=== PATIENT | female | born 1945 | race Caucasian/White ===

== ENCOUNTER → 2016-11-28 | Outpatient (CLI) | payer OTHER ==
--- NOTE | 2016-11-28 14:33 | KCIC ---
Examination: Three views of the thoracic spine. HISTORY History of neuropathy, chronic mid thoracic pain. COMPARISON None available. Findings : The vertebral body heights are maintained. The evaluation of the upper thoracic vertebral bodies is limited due to overlapping soft tissue. Moderate intervertebral disc height loss identified throughout the thoracic spine. IMPRESSION Moderate degenerative changes thoracic spine. Electronically signed by: Mac Pittman (Nov 28, 2016 14:32:00)
--- NOTE | 2016-11-28 17:19 | KCIC ---
Examination: DEXA scan. HISTORY History of postmenopausal, steroid use COMPARISON None available. Findings: The bone mineral density in the lumbar spine is 1.302 grams per centimeters square with a T-score of 2.6 and Z-score of 4.6. The bony density in the left femoral neck region is 0.807 grams per centimeters square with a T-score of -1.1 and Z-score of 0.4 IMPRESSION Bone mineral density is osteopenia in the left femoral neck region. Electronically signed by: Mca Pittman (Nov 28, 2016 17:18:30)
== END | disposition home or self-care (01) ==
LOC: KCIC DEXA 12:33
PROVIDERS: ATTEND Family Medicine
DX: Z78.0 Asymptomatic menopausal state (principal); G62.9 Polyneuropathy, unspecified; M54.6 Pain in thoracic spine; M47.814 Spondylosis without myelopathy or radiculopathy, thoracic region; Z79.52 Long term (current) use of systemic steroids
CPT/HCPCS: 72072; 77080

== ENCOUNTER → 2018-07-25 | Outpatient (CLI) | payer OTHER ==
--- NOTE | 2018-07-25 16:04 | RAD ---
DATE: 07/25/2016 EXAM: MAMMO MARGIE SCREENING BILATERAL HISTORY: Routine screening COMPARISON: 07/13/2016 and 07/14/2017 screen mammographic exams This study was interpreted with the benefit of Computerized Aided Detection (CAD). Breast Density: SCATTERED The breast parenchyma shows scattered fibroglandular densities. Breast parenchyma level B. FINDINGS: Benign calcifications are present. No suspicious calcification clusters, masses, or distortion. IMPRESSION: Normal BI-RADS CATEGORY: 2 BENIGN FINDING(S) RECOMMENDED FOLLOW-UP: 12M 12 MONTH FOLLOW-UP PQRS compliance statement: Patient information was entered into a reminder system with a target due date in 1 year for the next mammogram. Mammography is a sensitive method for finding small breast cancers, but it does not detect them all and is not a substitute for careful clinical examination. A negative mammogram does not negate a clinically suspicious finding and should not result in delay in biopsying a clinically suspicious abnormality. "Our facility is accredited by the [employer] Mammography Program."
== END | disposition home or self-care (01) ==
LOC: MAMMO 14:03
PROVIDERS: ATTEND Family Medicine
DX: Z12.31 Encounter for screening mammogram for malignant neoplasm of breast (principal)
CPT/HCPCS: 77063; 77067

== ENCOUNTER → 2019-02-01 | Outpatient (CLI) | payer OTHER ==
--- NOTE | 2019-02-01 11:16 | RAD ---
Chest, 2 views, 02/01/2019: HISTORY: Cough, right-sided chest pain The heart size and pulmonary vascularity are normal. No pulmonary infiltrate is seen. There is no evidence of pleural fluid. Mild scattered spurs are present in the spine. IMPRESSION: No acute cardiopulmonary abnormality is detected Electronically signed by: Lazaro Cardenas MD (02/01/2019 11:13 AM) [facility]
== END | disposition home or self-care (01) ==
LOC: RAD 10:48
PROVIDERS: ATTEND Internal Medicine Pulmonary Disease
DX: R05 Cough (principal); R07.9 Chest pain, unspecified; M46.00 Spinal enthesopathy, site unspecified
CPT/HCPCS: 71046

== ENCOUNTER → 2019-03-22 | Outpatient (CLI) | payer OTHER ==
--- NOTE | 2019-03-22 10:43 | CARD ---
MR#: [id number] Date of Study: 03/22/2019 Ordering Physician: VANESSA MCNAIR, Referring Physician: VANESSA MCNAIR, Tech: Kiara Jackman [facility] APPROVED REPORT EXAM: Two-dimensional and M-mode echocardiogram with Doppler and color Doppler. Other Information Quality : AverageHR: 78bpm Rhythm : NSRTechnically limited study due to body habitus. INDICATION Dyspnea 2D DIMENSIONS RVDd3.1 (2.9-3.5cm)Left Atrium(2D)3.0 (1.6-4.0cm) IVSd1.1 (0.7-1.1cm)Aortic Root(2D)2.7 (2.0-3.7cm) LVDd3.6 (3.9-5.9cm)LVOT Diameter1.8 (1.8-2.4cm) PWd0.9 (0.7-1.1cm)LVDs2.2 (2.5-4.0cm) FS (%) 38.5 %SV38.5 ml LVEF(%)69.7 (>50%) Aortic Valve AoV Peak Marlon.125.0cm/sAoV VTI26.3cm AO Peak GR.6.3mmHgLVOT Peak Marlon.85.6cm/s AO Mean GR.3mmHgAVA (VMAX)1.68cm2 ERIN (VTI)1.80cm2 Mitral Valve MV E Ghepqsxb22.0cm/sMV DECEL HIBD718ca MV A Gzeluapg26.0cm/sE/A Ratio0.7 Pulmonary Valve PV Peak Cujeddff01.0cm/s LEFT VENTRICLE The left ventricle is normal size. Proximal septal thickening is noted. The left ventricular systolic function is normal. The Ejection Fraction is 65-70%. There is normal LV segmental wall motion. Trans mitral Doppler flow pattern is Grade I-abnormal relaxation pattern. RIGHT VENTRICLE The right ventricle is normal size. There is normal right ventricular wall thickness. The right ventr icular systolic function is normal. ATRIA The left atrium size is normal. The right atrium size is normal. The interatrial septum is intact wit h no evidence for an atrial septal defect or patent foramen ovale as noted on 2-D or Doppler imaging. AORTIC VALVE The aortic valve is normal in structure and function. The aortic valve is trileaflet. Doppler and Col or Flow revealed no significant aortic regurgitation. There is no significant aortic valvular stenosi s. There is no aortic valvular vegetation. MITRAL VALVE The mitral valve is normal in structure and function. There is no evidence of mitral valve prolapse. There is no mitral valve stenosis. Doppler and Color Flow revealed no mitral valve regurgitation note d. TRICUSPID VALVE The tricuspid valve is normal in structure and function. Doppler and Color Flow revealed no tricuspid valve regurgitation noted. There is no tricuspid valve prolapse or vegetation. There is no tricuspid valve stenosis. PULMONIC VALVE The pulmonic valve is not well visualized. GREAT VESSELS The aortic root is normal in size. The ascending aorta is normal in size. The IVC is normal in size a nd collapses >50% with inspiration. PERICARDIAL EFFUSION There is no evidence of significant pericardial effusion. Critical Notification Critical Value: No <Conclusion> The left ventricular systolic function is normal. The Ejection Fraction is 65-70%. There is normal LV segmental wall motion. Transmitral Doppler flow pattern is Grade I-abnormal relaxation pattern. There is no evidence of significant pericardial effusion. Signed by : Ruddy Schulz, Electronically Approved : 03/22/2019 10:42:26
--- NOTE | 2019-03-22 12:27 | RAD ---
MR#: [id number] Date of Study: 03/22/2019 Ordering Physician: VANESSA MCNAIR Referring Physician: MABEL CHAN Tech: APPROVED REPORT Test Type: Exercise Stress Nurse/Tech: Pam Huber RN Test Indications: dyspnea Cardiac History: asthma Medications: see ehr Medical History: see ehr Resting ECG: sr Resting Heart Rate: 69 bpm Resting Blood Pressure: 142/85mmHg Pretest Chest Pain: No chest pain Nurse/Tech Notes lungs cta Consent: The procedure was explained to the patient in lay terms. Informed consent was witnessed. Héctor evelyn was entered into [employer]. History and Stress Test performed by UBALDO Saunders Stress Symptoms No chest pain or symptoms. POST EXERCISE Reason for Termination: Reached target heart rate Target HR: Yes Max HR: 127 bpm 86% of Maximum Predicted HR: 148 bpm Exercise duration: 6:37 min:sec, 3 Stage Exercise capacity: 10.0METs Max Blood Pressure: 182/77mmHg Blood Pressure response to exercise: Normal blood pressure response during stress. Chest Pain: No. Arrhythmia: Yes. unifocal PVCs noted ST Change: Yes. ST depression noted in II III avf, V4-6 throughout recovery, mostly resolved except L ead II INTERPRETATION Stress EKG Conclusion: Baseline EKG showed sinus rhythm. Upsloping ST depressions in the inferolatera l leads at peak stress suspicious but not diagnostic for ischemia. Few PVCs without any significant a rrhythmias were seen. Conclusion 1. Exercise stress electrocardiogram showed changes at peak stress suggestive but not diagnostic for ischemia. Recommend imaging study for definitive evaluation. Signed by : Ruddy Schulz, Electronically Approved : 03/22/2019 12:27:01
== END | disposition home or self-care (01) ==
LOC: NM 09:53
PROVIDERS: ATTEND Internal Medicine Pulmonary Disease
DX: R06.00 Dyspnea, unspecified (principal); J45.909 Unspecified asthma, uncomplicated
CPT/HCPCS: 93017; 93306

== ENCOUNTER → 2019-06-06 | Outpatient (CLI) | payer OTHER ==
[~2019-06-06] VITALS: Ht 175.3 cm; Wt 77.6 kg
[~2019-06-06] MED LIST: ALBU2.5V8 INH; FLUT100D IH; GABA-689 PO; LOVA20TA2 PO; NAPR-514 PO; RANI150C PO
--- NOTE | 2019-06-07 13:54 | RAD ---
MR#: [id number] Date of Study: 06/06/2019 Ordering Physician: YOLA WILDER, Referring Physician: MABEL CARRERA Tech: UBALDO Saunders APPROVED REPORT Test Type: Exercise Stress Nurse/Tech: Anastasia Cervantes RN Test Indications: chest pressure, cough Cardiac History: asthma Medications: See Electronic Medical Record Medical History: See Electronic Medical Record Resting ECG: SR Resting Heart Rate: 63 bpm Resting Blood Pressure: 173/85mmHg Pretest Chest Pain: None Nurse/Tech Notes S1S2, lungs CTA Consent: The procedure was explained to the patient in lay terms. Informed consent was witnessed. Héctor eout was entered into [employer]. History and Stress Test performed by Anastasia Cervantes RN Stress Symptoms Dyspnea POST EXERCISE Reason for Termination: Reached target heart rate Target HR: 125 Max HR: 135 bpm Max Blood Pressure: 184/69mmHg Blood Pressure response to exercise: Normal blood pressure response during stress. Heart Rate response to exercise: normal response Chest Pain: No. Arrhythmia: No. ST Change: No. INTERPRETATION Stress EKG Conclusion: Baseline EKG showed sinus rhythm. No ischemic changes at peak stress. No arr hythmias. Imaging Protocol IMAGE PROTOCOL: Rest Tc-99m/stress Tc-99m 1 day Rest: Stress: Viability: Radiopharm.Tc99m MifmikfdlOr76j Sestamibi [id number] 32mCi Duration 15min. 13min. Img Date 06/06/2019 06/06/2019 Inj-Img Qgzv45nqu. 60min. Post-Injection Exercise: 1 minute Rest Admin Site:IV - Right AntecubitalAdministrator:Bernice Bhandari, RT (R)(N) Stress Admin Site: IV - Right AntecubitalAdministrator: THEE Redding, ARRT (R)(N) STRESS DATA End Diast. Vol.55.0mlLVEDV index BSA29.0ml End Syst. Vol.7.0mlLVESV index BSA4.0ml Myocardial Ywne696.0gEject. Bbaoxhhw85.0% Stress Scores Regional WT0.00Summed WT7.00 Regional WM0.00Summed WM1.00 Study quality was good. Left Ventricular size was Normal at Rest and Stress. Lung uptake was . Left Ventricular ejection fraction is 87%. The rest and stress images show normal perfusion, normal contraction and thickening. LV Perf. Quant 17 Seg. SSS0.00 17 Seg. SRS0.00 17 Seg. SDS0.00 Stress Defect Extent (% LAD)0.00Rest Defect Extent (% LAD)0.00Rev. Defect Extent (% LAD)0.00 Stress Defect Extent (% LCX) 0.00Rest Defect Extent (% LCX)0.00Rev. Defect Extent (% LCX)0.00 Stress Defect Extent (% RCA)0.00Rest Defect Extent (% RCA)0.00Rev. Defect Extent (% RCA)0.00 Stress Defect Extent (% BERTO)0.00Rest Defect Extent (% BERTO)0.00Rev. Defect Extent (% BERTO)0.00 Conclusion 1. Treadmill exercise cardioisotope stress test did not show any evidence of ischemia or infarct. 2. Normal left ventricular systolic function with ejection fraction calculated at 87%. 3. Low risk for cardiac events. Signed by : Ruddy Schulz, Electronically Approved : 06/06/2019 12:47:47
== END | disposition home or self-care (01) ==
LOC: NM 08:18
PROVIDERS: ATTEND Internal Medicine Cardiovascular Disease
DX: R07.89 Other chest pain (principal); J45.909 Unspecified asthma, uncomplicated; Z88.8 Allergy status to other drugs, medicaments and biological substances; Z88.5 Allergy status to narcotic agent
CPT/HCPCS: 78452; 93017; A9500

== ENCOUNTER → 2019-08-12 | Outpatient (CLI) | payer OTHER ==
--- NOTE | 2019-08-14 11:50 | RAD ---
DATE: August 12, 2019 EXAM: MAMMO MARGIE SCREENING BILATERAL HISTORY: Screening study. COMPARISON: 2016 and 2018 This study was interpreted with the benefit of Computerized Aided Detection (CAD). 2-D digital mammographic views of both breasts were performed in the CC and MLO projections. 3-D digital tomosynthesis images of both breasts were performed in the CC and MLO projections and reviewed on a computer workstation. FINDINGS: Breast Density: FATTY The breast parenchyma is primarily fatty replaced. Breast parenchyma level density A.. There are no dominant suspicious masses, suspicious microcalcifications or evidence of architectural distortion. Bilateral breast nodularity is unchanged. IMPRESSION: No mammographic indicators for malignancy. BI-RADS CATEGORY: 2 BENIGN FINDING RECOMMENDED FOLLOW-UP: 12M 12 MONTH FOLLOW-UP PQRS compliance statement: Patient information was entered into a reminder system with a target due date August 13, 2020 for the next mammogram. Mammography is a sensitive method for finding small breast cancers, but it does not detect them all and is not a substitute for careful clinical examination. A negative mammogram does not negate a clinically suspicious finding and should not result in delay in biopsying a clinically suspicious abnormality. "Our facility is accredited by the [employer] Mammography Program." The patient's breast density may affect the ability of mammography to detect breast cancer. There are 4 categories of breast density, A, B, C and D. Breast density A means that most of the breast tissue is replaced with adipose tissue and therefore is not dense. Breast density B means that the breast tissue is mildly dense and scattered. Breast density C means that the breast tissue is heterogeneously dense. Breast density D means that the breast tissue is very dense. Breast densities especially C and D may decrease the sensitivity of mammography to detect breast cancer. Therefore, the patient may benefit from 3-D breast mammography (3D breast tomography) as a part of their screening mammogram. Insurance may or may not pay for this additional imaging. The patient's breast density based on today's mammogram is category A.
== END | disposition home or self-care (01) ==
LOC: MAMMO 15:30
PROVIDERS: ATTEND Family Medicine
DX: Z12.31 Encounter for screening mammogram for malignant neoplasm of breast (principal)
CPT/HCPCS: 77063; 77067

== ENCOUNTER → 2020-06-26 | Outpatient (CLI) | payer MEDICARE, OTHER ==
--- NOTE | 2020-06-26 15:38 | RAD ---
MRI Thoracic Spine without contrast History:Back pain Technique: Multiplanar, multi sequential noncontrast MR imaging was performed of the thoracic spine. Comparison: None Findings: Thoracic vertebral body stature is overall maintained. There is large 1.6 cm focus of somewhat heterogeneous signal abnormality of the T2 vertebral body, degree of associated T2 and STIR hyperintense signal and somewhat heterogeneous on T1 sequence and likely degree of associated trabecular thickening. There is also focus of T1 hypointense signal of the T6 vertebral body on the left extending to the inferior endplate about 0.8 cm in size, centrally hyperintense on STIR sequence. There is multilevel advanced degenerative disc disease greatest at T7-8 through T10-11, to a lesser degree of more superior levels. Thoracic cord caliber is within normal limits without defined or expansile signal abnormality, limited evaluation for subtle signal change due to motion. AP alignment is overall maintained. Levels with abnormalities include: T1-2: There is shallow bulge/protrusion without significant spinal stenosis. T2-3: There is shallow bulge/protrusion without significant spinal stenosis. T5-T6: There is a very shallow posterior bulge/protrusion without spinal stenosis. T6-7: There is very shallow posterior protrusion without spinal stenosis. T7-8: There is very minimal disc osteophyte complex without spinal stenosis. There is minimal buckling of the ligamentum flavum. T8-9: There is very minimal disc osteophyte complex and bulge. There is mild prominence of posterior epidural fat. There is very mild attenuation of the thecal sac. Facet degenerative change contributes to minimal narrowing of the right neural foramen. T9-10: There is mild buckling of the ligamentum flavum. There is prominence of posterior epidural fat centrally. There is minimal bulge. There is minimal narrowing of the far lateral recesses bilaterally. Facet degenerative change contributes to nxmj-bu-nftxpudk narrowing of the left neural foramen, mild narrowing on the right. T10-11: There is very minimal disc osteophyte complex and bulge. There is mild prominence of posterior epidural fat centrally. There is mild buckling of the ligamentum flavum. There is minimal narrowing of the left lateral recess from posteriorly. There is very mild narrowing of the left neural foramen. As seen on the localizer, there is multilevel cervical degenerative disc disease greatest C4-5 to C6-7. There is grade 1 anterior spondylolisthesis C4-5. There is likely central canal stenosis C4-5 estimated about 9 mm. Impression: 1. There is multilevel thoracic degenerative disc disease and mild spondylosis. No significant thoracic spinal stenosis is identified, mild attenuation of the thecal sac. 2. There are foci of marrow signal abnormality of the T2 and T6 vertebral bodies. T2 lesion is more likely a hemangioma as there appears to be some trabecular thickening. Focus of T6 is considered indeterminant, difficult to exclude more aggressive marrow replacing lesion on this exam. Bone scan could be beneficial to assess for abnormal radiotracer activity and to assess for other lesions. Alternatively, follow-up to assess stability such as in 3-6 months could be beneficial. 3. There is multilevel cervical degenerative disc disease. There is grade 1 anterior spondylolisthesis at C4-5 with there is likely mild spinal stenosis. Electronically signed by: Danny Pyle MD (06/26/2020 3:35 PM) [facility]ENTERDavida
== END ==
LOC: MRI 14:45
PROVIDERS: ATTEND Nurse Practitioner Family
DX: M51.34 Other intervertebral disc degeneration, thoracic region (principal); M47.812 Spondylosis without myelopathy or radiculopathy, cervical region; M50.30 Other cervical disc degeneration, unspecified cervical region; M48.02 Spinal stenosis, cervical region; M43.12 Spondylolisthesis, cervical region
CPT/HCPCS: 72146

== ENCOUNTER → 2021-02-16 | Outpatient (CLI) | payer MEDICARE ==
[~2021-02-16] MED LIST changes: -FLUT100D IH; +FLUT100D2 IH
--- NOTE | 2021-02-16 13:33 | KCIC ---
EXAM: Lumbar spine MRI without contrast. HISTORY: Radiculopathy. TECHNIQUE: Multiplanar, multisequence magnetic resonance imaging of the lumbar spine was performed wi thout contrast. COMPARISON: Thoracic MRI dated 06/26/2020. FINDINGS: There are right transpedicular screws bridged by vertical rods and there is a disc space fu john device at L4-L5. There is grade 1 anterolisthesis this level, measuring 5 mm. There is slight re trolisthesis of L2 on L3. There is lumbar scoliosis. There is multilevel endplate remodeling with disc space narrowing, osteophytosis and Schmorl's node f ormation. There is relative preservation of the disc space at L1-L2. There is no suspicious osseous l esion. There is no fracture. The conus terminates at L1. There are right renal parapelvic cysts. Foll ow-up is not routinely performed for simple cysts. At T9-T10, there is a disc bulge and endplate remodeling. There is moderate left facet arthropathy. T here is suspected mild bilateral foraminal and central canal stenosis. At T10-T11, there is a disc bulge and endplate remodeling. There is mild bilateral facet arthropathy. There is suspected mild right foraminal and central canal stenosis. At T11-T12, there is a minimal left lateral recess disc protrusion superimposed on a disc bulge. Ther e is mild right facet arthropathy. There is no stenosis. At T12-L1, there is no stenosis. At L1-L2, there is a minimal disc bulge. There is no stenosis. At L2-L3, there is a right lateral recess to extra foraminal disc protrusion superimposed on a right lateral predominant disc bulge and endplate osteophytosis. There is moderate right and mild left face t arthropathy. There is hypertrophy of the ligamentum flavum. There is moderate to severe right alex inal stenosis with abutment the exiting right L2 nerve root. There is moderate central canal stenosis . At L3-L4, there is a diffuse disc bulge and endplate osteophytosis. There is severe bilateral facet a rthropathy. There is hypertrophy of the ligamentum flavum. There is moderate right and moderate to se erin left foraminal stenosis with abutment the exiting L3 nerve roots. There is severe central canal stenosis. At L4-L5, there is instrumented fusion. There is a disc bulge and endplate remodeling. There is parti al laminectomy decompression. There is mild central canal stenosis. At L5-S1, there is a left paracentral to lateral recess disc protrusion and annular tear superimposed on a disc bulge and endplate osteophytosis. There is mild right facet arthropathy. There is mild rig ht foraminal stenosis with abutment the exiting right L5 nerve root. There is narrowing of the left l ateral recess and abutment the traversing left S1 nerve root. IMPRESSION: 1. Multiple degenerative change involving the lower thoracic and lumbar spine, described in detail ab ove. This results in stenosis at the aforementioned levels. The central canal stenosis most severe at L3-L4. 2. Instrumented right posterior spinal fusion and disc space device placement at L4-L5. 3. Lumbar scoliosis and multilevel listhesis. Electronically signed by: Bernice Sena MD (02/16/2021 1:31 PM) [id number]
== END ==
LOC: KCIC MRI 12:29
PROVIDERS: ATTEND Neurological Surgery
DX: M47.25 Other spondylosis with radiculopathy, thoracolumbar region (principal); M41.86 Other forms of scoliosis, lumbar region; M43.16 Spondylolisthesis, lumbar region
CPT/HCPCS: 72148

== ENCOUNTER → 2021-04-19 | Outpatient (CLI) | payer MEDICARE ==
[~2021-04-19] MED LIST changes: +GADOTERATE 7.5 MMOL/15ML VIAL. IVP ONE; +IBUP-1060 PO; +LOSA-73 PO; +MELA10TA7 PO; +OMEP20CA16 PO
--- NOTE | 2021-04-19 14:21 | KCIC ---
MRI THORACIC SPINE WITHOUT AND WITH IV CONTRAST History:Reason: THORACIC RADICULOPATHY / Spl. Instructions: / History: Abnormal prior Tspine imaging . 12cc Clariscan. Technique: Multiplanar, multi sequential MR imaging was performed of the thoracic spine was performed without and with intravenous contrast. Comparison: Lumbar spine February 16, 2021. Thoracic spine June 26, 2020 Findings: STIR hyperintense signal abnormality lesion within T6 vertebral body with enhancement is similar comp ared to prior allowing for differences in technique. T2 vertebral body lesion is also similar compare d to prior. No new lesions. Normal vertebral body height and alignment. No acute fracture. No pathologic signal abnormality within the thoracic spinal cord. Moderate multilevel degenerative disc changes with disc protrusions most prominent T6-T7, T7-T8, T8-T 9, T9-T10 and T10-T11. Mild cord flattening T7-T8, T8-T9 and T9-T10. Minimal canal narrowing T8-T9, T 9-T10 and T10-T11. Multilevel facet arthropathy. Mild to moderate neuroforaminal narrowing T7-T8, T8- T9 and T9-T10. Impression: 1. Enhancing T6 vertebral body lesion, similar compared to prior allowing for differences in techniq ue. Finding may represent atypical hemangioma in the absence of concern for malignancy. If persistent concern for malignancy, recommend continued follow-up and bone scan can further evaluate. 2. Unchanged T2 vertebral body lesion, may represent hemangioma. 3. Moderate multilevel thoracic spondylosis, similar compared to prior. Electronically signed by: Mundo Riggins DO (04/19/2021 2:18 PM) [id number]
== END ==
LOC: KCIC MRI 09:57
PROVIDERS: ATTEND Neurological Surgery
DX: M47.24 Other spondylosis with radiculopathy, thoracic region (principal); M51.14 Intervertebral disc disorders with radiculopathy, thoracic region; M48.04 Spinal stenosis, thoracic region
CPT/HCPCS: 72157; 82565; A9575

== ENCOUNTER → 2021-05-20 | Outpatient (CLI) | payer MEDICARE ==
[~2021-05-20] MED LIST changes: +CYAN100T21 PO; -GADOTERATE 7.5 MMOL/15ML VIAL. IVP ONE; +IOHEXOL 180 MG/ML 10 ML VIAL. ONE; +LANS30CA66 PO; +methylPREDNISolone ACETATE 80 MG/ML VIAL. ONE
--- NOTE | 2021-05-20 13:03 | PDOC4 ---
Procedure Note: ICD 10 Code: ICD 10 Code: M54.16 M 48.06 M51.36 Procedure Note: Patient was consented for lumbar epidural steroid injection with fluoroscopic guidance. Risks were discussed including but not limited to: Bleeding, infection, possibility of epidural hematoma and subsequent neurological compromise, dural puncture, headaches, spinal cord and/or nerve damage, side effects of steroid medication, and poor results regarding pain control. Patient understands and wished to proceed. Procedure is lumbar epidural steroid injection under local anesthetic using сергей rile prep and drape at the L3-4 level using C-arm fluoroscopic guidance in both AP and lateral views medications injected is 120 mg Depo-Medrol +10mL preservative-free normal saline and 2 mL contrast- condition at discharge is stable patient tolerated procedure well had no complications. KANE RODRIGUEZ MD May 20, 2021 13:03
--- NOTE | 2021-05-20 13:03 | PDOC1 ---
INITIAL PAIN CONSULT DATE OF SERVICE: DOS: DATE: 05/20/21 TIME: 12:57 CHIEF COMPLAINT: Chief Complaint: Low back and right lower extremity pain HISTORY OF PRESENT ILLNESS: 76-year-old female presents history of pain low back right lower extremity for many years worse over the past year or so status post lumbar fusion on the right at L4-5 with good results initially with pain returning now in the low back and the right lower extremity posterior gluteus posterior lateral thigh lateral anterior thigh anteromedial thigh medial groin and into the medial knee on the right side as well patient reports constant throbbing radiating changes during the day worse with walking standing worse with changing positions worsen getting up from a seated position awakens her from sleep least once or twice a night reports he does not effective bowel bladder control but does affect her ability to walk she does not use any assistive devices however patient has had physical therapy as well as chiropractic treatment is currently doing exercise all of which help but only to a moderate extent. Patient has a MRI scan of the lumbar spine showing multiple degenerative changes instrumented right posterior spinal fusion nondisplaced device placement L4-5 with L3-4 disc bulge with severe bilateral arthropathy hypertrophy of ligamentum flavum with moderate right and moderate to severe left foraminal stenosis with abutment of the exiting L3 nerve roots with severe central canal stenosis. L5-S1 shows mild right foraminal stenosis with abutment of the exiting right L5 nerve root with narrowing left lateral recess and abutment of the traversing left S1 nerve root. Patient rates her disability of 0-10 10 being the worst is a 7 with family home responsibilities and recreation 6 with social activity self-care and life support activities. Patient has been taking gabapentin as well as [id number] Motrin which does decrease the pain but only to a moderate extent. Patient reports no loss of motor function no bowel or bladder incontinence. PAST MEDICAL HISTORY: PMH: Hypertension, arthritis, cataracts PREVIOUS SURGERIES: Past Surgical Hx: Tonsillectomy, hysterectomy, carpal tunnel repair, cubital tunnel release, cholecystectomy, lumbar fusion, breast reduction, cataract extractions CURRENT MEDICATIONS: Current Meds: Active Scripts Medications Dose Route/Sig Max Daily Dose Days Date Category Prevacid (Lansoprazole) 30 Mg Capsule. 1 Cap PO DAILY 30 05/20/21 Reported Vitamin B-12 (Cyanocobalamin (Vitamin B-12)) 100 Mcg Tablet 100 Mcg PO DAILY 05/20/21 Reported Melatonin 10 Mg Tab.rapdis 10 Mg PO 04/19/21 Reported Omeprazole 20 Mg Capsule.dr 20 Mg PO DAILY 04/19/21 Reported Ibuprofen 800 Mg Tablet 800 Mg PO PRN Q6HRS PRN 04/19/21 Reported Losartan Potassium 50 Mg Tablet 50 Mg PO DAILY 04/19/21 Reported Lovastatin 20 Mg Tablet 1 Tab PO DAILY 06/06/19 Reported Gabapentin (Gabapentin) 400 Mg Capsule 400 Mg PO TID 06/06/19 Reported Naproxen 500 Mg Tablet 1 Tab PO BID 06/06/19 Reported ALLERGIES; Allergies: Coded Allergies: bacitracin (Verified Allergy, Intermediate, rash, 06/06/19) codeine (Verified Allergy, Intermediate, N/V rash, 06/06/19) polymyxin B (Verified Allergy, Intermediate, rash, 06/06/19) FAMILY HISTORY: Family Hx: Heart disease SOCIAL HISTORY: Social Hx: Patient is alcohol 1 to 2 glasses of wine a month on average, does not smoke does not use any illegal illicit or recreational drugs is lives locally in [facility] and is currently retired. REVIEW OF SYSTEMS: ROS: Positive for those items mentioned in history of present illness, all systems are reviewed, otherwise negative ,and are complete full and well-documented on patient's chart. PHYSICAL EXAM: VS: Blood pressure is 165/88 pulse 71 respirations 18 temperature is 90.7 F height is 5 foot weight is 166 pounds PE: PHYSICAL EXAMINATION: GENERAL: The patient is awake, alert, oriented, appropriate, very pleasant in demeanor. HEENT: Shows normocephalic, atraumatic. Extraocular movements are intact and symmetrical. Oral cavity: Mucous membranes moist and pink. NECK: Shows anterior throat supple without palpable lymphadenopathy noted. Swallow reflex symmetrical. CHEST: Shows normal on inspection. Breath sounds are clear bilaterally, distant no rales rhonchi or wheezes auscultated. HEART: Shows S1, S2 clear. No murmurs auscultated. ABDOMEN: Soft, nontender, nondistended, obese. No palpable organomegaly is noted. No rebound or guarding demonstrated. BACK: Shows spine grossly in the midline. Normal-appearing cervical lordotic curvature. There is slightly increased thoracic kyphosis, some minor flattening of the lumbar lordotic curvature. Lumbar paraspinous muscles show symmetrical on inspection, on palpation shows some moderate tenderness diffusely throughout the upper, middle and lower distribution of the paraspinous muscles bilaterally and also into the lower thoracic paraspinous musculature, firm and tender, but without specific trigger points, without radiation of pain. The patient has good rotational motion of the lumbar spine, both laterally as well as extension and flexion without significant difficulty. No tenderness over the spinous processes, sacrum or sacroiliac regions. EXTREMITIES: Lower extremities show deep tendon reflexes 1 in the patellar and tendo calcaneus tendons. Motor exam is 4 on a scale of 5 with right dorsiflexion, extension, quadriceps and hamstring flexion and 5/5 on the left. Peripheral pulses are 1 posterior tibial. No peripheral edema is noted b ilaterally. Lower extremities are warm and dry to touch, equal in color and appearance. Straight leg raise noted to be positive on the right about 40 degrees, left side is negative. Gaenslen's and Kenan's maneuvers are negative bilateral as well. The patient is able to stand, stand on her toes without significant difficulty or loss of balance but does walk with a slight favoring gait appears to favor the right lower extremity again not use any assistive devices to ambulate. SKIN: Shows warm and dry, good turgor. No edema. No sores, rashes or bruising throughout. IMPRESSION: Impression: 76-year-old female with long history low back right lower extremity pain or radicular fashion. MRI scan lumbar spine as noted Hypertension Arthritis Plan: Options were discussed with the patient "conservative management physical therapies interventional techniques. Patient like to pursue interventional techniques. We discussed a lumbar epidural steroid injections descriptions as well as anatomical models to describe the procedure. Patient would like to proceed. Patient will return to the clinic in approximately 2 weeks for follow- up, was counseled as return appointment, activity level, and side effects to be aware of. Procedure is lumbar epidural steroid injection under local anesthetic using sterile prep and drape at the L3-4 level using C-arm fluoroscopic guidance in both AP and lateral views medications injected is 120 mg Depo-Medrol +10mL preservative-free normal saline and 2 mL contrast- condition at discharge is stable patient tolerated procedure well had no complications. KANE RODRIGUEZ MD May 20, 2021 13:03
== END | disposition home or self-care (01) ==
LOC: PNCL 10:03
PROVIDERS: ATTEND Anesthesiology
DX: M54.5 Low back pain (principal); I10 Essential (primary) hypertension; M19.90 Unspecified osteoarthritis, unspecified site; M51.16 Intervertebral disc disorders with radiculopathy, lumbar region; M48.061 Spinal stenosis, lumbar region without neurogenic claudication; Z88.5 Allergy status to narcotic agent; Z88.8 Allergy status to other drugs, medicaments and biological substances; Z79.899 Other long term (current) drug therapy; Z98.890 Other specified postprocedural states; Z82.49 Family history of ischemic heart disease and other diseases of the circulatory system
CPT/HCPCS: 62323; 99205; J1040; Q9965; G0463

== ENCOUNTER → 2021-08-19 | Outpatient (CLI) | payer MEDICARE ==
[~2021-08-19] MED LIST changes: -IOHEXOL 180 MG/ML 10 ML VIAL. ONE; -methylPREDNISolone ACETATE 80 MG/ML VIAL. ONE
--- NOTE | 2021-08-19 12:23 | RAD ---
BILATERAL DIGITAL SCREENING 2-D AND 3-D MAMMOGRAM INDICATION: Routine screening. History of breast reduction. COMPARISON: August 12, 2019, July 14, 2017, July 25, 2018 and July 07, 2020 Interpretation was made using CAD. FINDINGS: Breast Density: There are scattered areas of fibroglandular density. RIGHT BREAST: Stable masses are seen in the lower outer quadrant. There is also a stable masses in he r breast. No suspicious masses, calcifications or areas of distortion are seen. LEFT BREAST: No suspicious masses, calcifications or areas of architectural distortion are seen. IMPRESSION: 1. No imaging evidence of malignancy. ASSESSMENT: BI-RADS 2. Benign Findings RECOMMENDATION: Routine annual screening mammogram. The facility will notify the patient of the results via mail. Patient information will be entered int o the mammography reminder system with a target recall date for the next mammogram. A reminder letter will be generated by the facility. Electronically signed by: Mary Cannon MD (08/19/2021 12:20 PM) [id number]
== END ==
LOC: MAMMO 07:52
PROVIDERS: ATTEND Nurse Practitioner Family
DX: Z12.31 Encounter for screening mammogram for malignant neoplasm of breast (principal)
CPT/HCPCS: 77063; 77067

== ENCOUNTER → 2021-09-08 | Outpatient (CLI) | payer MEDICARE ==
--- NOTE | 2021-09-08 09:59 | KCIC ---
EXAM: Right shoulder, 3 views. HISTORY: Pain. COMPARISON: None. FINDINGS: 3 views of the right shoulder obtained. There is no acute fracture, dislocation or subluxat ion. There is mild glenohumeral joint spurring. There is right infrahilar atelectasis or scarring. IMPRESSION: Mild glenohumeral joint osteoarthritis. Electronically signed by: Bernice Sena MD (09/08/2021 9:56 AM) [id number]
== END ==
LOC: KCIC 09:27
PROVIDERS: ATTEND Nurse Practitioner Family
DX: M19.011 Primary osteoarthritis, right shoulder (principal)
CPT/HCPCS: 73030

== ENCOUNTER → 2021-10-21 | Outpatient (CLI) | payer MEDICARE ==
[~2021-10-21] MED LIST changes: +GADOTERATE 7.5 MMOL/15ML VIAL. IVP ONE
--- NOTE | 2021-10-21 16:06 | KCIC ---
EXAM: Thoracic spine MRI without and with contrast. HISTORY: Radiculopathy. T6 lesion. TECHNIQUE: Multiplanar, multisequence magnetic resonance imaging of the thoracic spine was performed without and with contrast. COMPARISON: 04/19/2021 and 06/26/2020 FINDINGS: The incendiaries supervisor images of the cervical spine demonstrate multilevel degenerative listhesis, endpl ate remodeling, osteophytosis and facet arthropathy. This is not formally assessed on this exam. Gini larly, the incendiaries supervisor images of the lumbar spine demonstrate multilevel listhesis, degenerative endplate r emodeling, osteophytosis and facet arthropathy contributing to foraminal stenosis at multiple levels. There is instrumented fusion at L4-L5. There is a stable enhancing T1 and T2 hyperintense lesion with increased signal on inversion recovery images within T2, the appearance of which favors a hemangioma. There has been slight interval increa se in an enhancing T2 hyperintense and T1 hypointense lesion with increased signal on inversion recov karsten images at T6. This measures 1.3 cm cranial caudal compared to a prior measurement of 1.1 cm on th e study performed 04/19/2021 and 0.9 cm on the study performed 06/26/2020. There are few additional sma ll lesions due to hemangiomas. There is no fracture. There is multilevel endplate remodeling. There are multiple endplate Schmorl's nodes. No spinal cord lesion is seen. There are several disc bulges and shallow disc protrusions throughout the thoracic sp ine. The combination of this finding and facet arthropathy contributes to slight deformation of the t horacic spinal cord at multiple levels and mild multilevel foraminal stenosis. There is no significan t central canal stenosis. There are multiple right renal parapelvic cysts. There is a 2.0 cm ovarian cyst adjacent to a vaginal cuff status post hysterectomy. The conus terminates at L1. IMPRESSION: 1. Slight interval increase in size of a T1 hypointense enhancing lesion within T6. Despite the slow interval change, the differential continues to include an atypical hemangioma as well as a solitary o sseous metastasis. There are stable additional hemangiomas, the largest of which is seen within T2. 2. Multilevel degenerative change, described in detail above. 3. Degenerative change involving the cervical spine, not formally assessed on this exam. 4. Degenerative and postoperative change involving the lumbar spine, not formally assessed on this ex am. 5. 2.0 cm ovarian cyst. This is not included on the [id number] on prior studies. Given the postmen opausal status the patient, pelvic sonography is recommended for characterization. Electronically signed by: Bernice Sena MD (10/21/2021 4:04 PM) [id number]
== END ==
LOC: KCIC MRI 12:21
PROVIDERS: ATTEND Neurological Surgery
DX: G95.89 Other specified diseases of spinal cord (principal); N28.1 Cyst of kidney, acquired; N83.209 Unspecified ovarian cyst, unspecified side; M47.812 Spondylosis without myelopathy or radiculopathy, cervical region; M50.30 Other cervical disc degeneration, unspecified cervical region; M51.44 Schmorl's nodes, thoracic region; M48.8X2 Other specified spondylopathies, cervical region; M43.12 Spondylolisthesis, cervical region; M48.02 Spinal stenosis, cervical region; Z98.1 Arthrodesis status
CPT/HCPCS: 72157; 82565; A9575

== ENCOUNTER → 2021-11-01 | Outpatient (CLI) | payer MEDICARE ==
[~2021-11-01] MED LIST changes: +DEXAMETHASONE PRES.FREE 10 MG/ML VIAL. ONE; -GADOTERATE 7.5 MMOL/15ML VIAL. IVP ONE; +IOHEXOL 180 MG/ML 10 ML VIAL. ONE
--- NOTE | 2021-11-01 16:30 | PDOC ---
Progress Note - Pain Clinic Date of Service: DOS: DATE: 11/01/21 TIME: 16:24 Diagnosis: Dx: Lumbar to colopathy with lumbar degenerative disease lumbar spinal stenosis with lumbar postlaminectomy syndrome Thoracic radiculopathy with thoracic degenerative disc disease History or Present Illness: HPI: 76-year-old female returns for follow-up status post lumbar epidural steroid injection last seen May 2021 patient did very well that 90% improvement patient reports he is having pain in the mid upper back Recently seen her neurosurgeon with a new MRI scan which we discussed with her today showing some degenerative changes throughout the thoracic spine and multilevel disc bulges and shallow disc protrusions throughout the thoracic spine with slight deformation of the thoracic spinal cord at multiple levels and mild multilevel foraminal stenosis. Patient reports pain radiating around the right side from the mid back just below the shoulder blade and next to the shoulder blade on the right with pain in the back itself patient reports is worse with activity standing walking changing positions better with sitting or laying down but does awaken her from sleep about every 4 hours patient reports a 10 on scale 10 is worse can be 3 at its least and a 7 on average is a 5 today. Patient scribes pain is aching tight burning and cramping radiating to the right side and severe does not cross the midline anteriorly but does get into the anterior rib cage at times with activity only on the right side. Patient reports no bowel or bladder incontinence. Physical Exam: VS: Blood pressure is 157/85 pulse 70 respirations 18 temperature is 97.7 F height is 5 foot weight is 166 pounds. PE: PHYSICAL EXAMINATION: GENERAL: The patient is awake, alert, oriented, appropriate, very pleasant in demeanor HEENT: Shows normocephalic, atraumatic. Extraocular movements are intact and symmetrical. Oral cavity: Mucous membranes moist and pink. Dentition is intact. NECK: Shows anterior throat supple without palpable lymphadenopathy noted. Swallow reflex symmetrical. CHEST: Shows normal on inspection. Breath sounds are clear bilaterally, no rales rhonchi or wheezes auscultated. No rashes or discoloration of the right thoracic cage. HEART: Shows S1, S2 clear. No murmurs auscultated. ABDOMEN: Soft, nontender, nondistended. No palpable organomegaly is noted. No rebound or guarding demonstrated. BACK: Shows spine grossly in the midline. Normal-appearing cervical lordotic curvature. There is slightly increased thoracic kyphosis, some minor flattening of the lumbar lordotic curvature. Thoracic paraspinous muscles show symmetrical inspection on palpation shows some moderate tenderness diffusely in the right greater than left paraspinous muscles from the mid to upper distribution of the thoracic paraspinous muscles but without significant tenderness over the spinous processes themselves. Lumbar paraspinous muscles show symmetrical on inspection, on palpation shows some moderate tenderness diffusely throughout the upper, middle and lower distribution of the paraspinous muscles without specific trigger points, without radiation of pain. The patient has good rotational motion of the lumbar spine, both laterally as well as extension and flexion without significant difficulty. No tenderness over the spinous processes, sacrum or sacroiliac regions. EXTREMITIES: Lower extremities show deep tendon reflexes 1+ in the patellar and tendo calcaneus tendons. Motor exam is 4 on a scale of 5 with right dorsiflexion, extension, quadriceps and hamstring flexion and 5/5 on the left. Peripheral pulses are 1 posterior tibial. No peripheral edema is noted bilaterally. Lower extremities are warm and dry to touch, equal in color and appearance. SKIN: Shows warm and dry, good turgor. No edema. No sores, rashes or bruising throughout. Procedure: Procedure: Options were discussed with the patient. Patient's old chart was viewed as her current medication regimen updated current review of systems updated today as well. We will proceed with a thoracic epidural steroid injection today with fluoroscopic guidance. Risks were discussed including but not limited to: Bleeding, infection, possibility of epidural hematoma and subsequent neurological compromise, dural puncture, headaches, spinal cord and/or nerve damage, side effects of steroid medication, and poor results regarding pain control. Patient understands and wished to proceed. Patient will return to the clinic in approximately 2 weeks for follow-up, was counseled as to return appointment, activity level, and side effect to be aware of. Medication Injected: Med Injected: Procedure is thoracic epidural steroid injection under local anesthetic using sterile prep and drape at the T7-8 level using C-arm fluoroscopic guidance in both AP and lateral views medications injected is 120 mg Depo-Medrol +10mL preservative-free normal saline and 2 mL contrast- condition at discharge is stable patient tolerated procedure well had no complications. Condition at Discharge: Condition at Discharge: Condition at discharge stable, patient tolerated the procedure well and had no complications. KANE RODRIGUEZ MD Nov 01, 2021 16:30
--- NOTE | 2021-11-01 16:30 | PDOC4 ---
Procedure Note: ICD 10 Code: ICD 10 Code: M54.14 M51.34 Procedure Note: Patient was consented for thoracic epidural steroid injection with fluoroscopic guidance. Risks were discussed including but not limited to: Bleeding, infection, possibility of epidural hematoma and subsequent neurological compromise, dural puncture, headaches, spinal cord and/or nerve damage, side effects of steroid medication, and poor results regarding pain control. Patient understands and wished to proceed. Procedure is thoracic epidural steroid injection under local anesthetic using sterile prep and drape at the T7-8 level using C-arm fluoroscopic guidance in both AP and lateral views medications injected is 120 mg Depo-Medrol +10mL preservative-free normal saline and 2 mL contrast- condition at discharge is stable patient tolerated procedure well had no complications. KANE RODRIGUEZ MD Nov 01, 2021 16:30
== END | disposition home or self-care (01) ==
LOC: PNCL 14:59
PROVIDERS: ATTEND Anesthesiology
DX: M51.14 Intervertebral disc disorders with radiculopathy, thoracic region (principal); M51.16 Intervertebral disc disorders with radiculopathy, lumbar region; M48.061 Spinal stenosis, lumbar region without neurogenic claudication; M96.1 Postlaminectomy syndrome, not elsewhere classified; Z79.899 Other long term (current) drug therapy; Z88.5 Allergy status to narcotic agent; Z88.8 Allergy status to other drugs, medicaments and biological substances
CPT/HCPCS: 62321; J1100; Q9965